=== PATIENT | male | born 1960 | race Caucasian/White ===

== ENCOUNTER 2020-04-17 10:39 | Day surgery (SDC) | payer MEDICAID ==
[2020-04-09 11:07] LABS: BASOPHILS # (AUTO) 0.1 X10'3 (0-0.2); BASOPHILS % (AUTO) 0.6 % (0-1); EOSINOPHILS # (AUTO) 0.2 X10'3 (0-0.9); EOSINOPHILS % (AUTO) 2.2 % (0-6); LYMPHOCYTES # (AUTO) 1.9 X10'3 (1.1-4.8); LYMPHOCYTES % (AUTO) 21.1 % (21-51); MEAN CORPUSCULAR HEMOGLOBIN 27.1 PG (27.0-31.0); MEAN CORPUSCULAR HGB CONC 32.7 g/dL (33.0-36.5); MEAN CORPUSCULAR VOLUME 82.9 FL (78-98); MEAN PLATELET VOLUME 7.2 FL (7.4-10.4); MONOCYTES # (AUTO) 0.6 X10'3 (0-0.9); MONOCYTES % (AUTO) 6.1 % (2-12); NEUTROPHILS # (AUTO) 6.5 X10'3 (1.8-7.7); PRE OP HEMATOCRIT 40.6 % (42.0-52.0); PRE OP HEMOGLOBIN 13.3 g/dL (14.0-17.9); PRE OP PLATELET COUNT 246 X10'3 (140-440); RED BLOOD COUNT 4.89 X10'6 (4.70-6.10); RED CELL DISTRIBUTION WIDTH 15.9 % (11.5-14.5)
[2020-04-09 11:23] LABS: ALBUMIN/GLOBULIN RATIO 1.1 (1.1-1.5); ALKALINE PHOSPHATASE 78 IU/L (46-116); BLOOD UREA NITROGEN 12 MG/DL (7-18); BUN/CREATININE RATIO 11.4 (5.4-32.0); CALCIUM 8.9 MG/DL (8.5-10.1); CHLORIDE 105 MMOL/L (99-107); CREATININE 1.05 MG/DL (0.60-1.10); PRE OP ALT 48 U/L (30-65); PRE OP ANION GAP 9 (8-16); PRE OP AST 33 U/L (10-37); PRE OP BILIRUB, TOTAL 0.4 MG/DL (0.0-1.0); PRE OP GLUCOSE 93 MG/DL (70-104); PRE OP POTASSIUM 4.2 MMOL/L (3.4-5.1); PRE OP SODIUM 142 MMOL/L (135-145); TOTAL CARBON DIOXIDE 28.4 MMOL/L (24-32); TOTAL PROTEIN 7.8 G/DL (6.4-8.2); eGFR 73 ML/MIN
[~2020-04-17] VITALS: Ht 177.8 cm; Wt 110.9 kg
[2020-04-17] VITALS (8 sets, daily range): BP systolic 111–139; BP diastolic 69–85
[~2020-04-17 10:39] MED LIST: ACET-3447 PO; ALBU2.5V10 INH; ALBU6.7H3 IH; ARIP20TA10 PO; ASPI-611 PO; ATEN100T PO; ATOR20TA66 PO; BUDE10.2 INH; CLA10T PO; CYCL-1 PO; DOCUMENT DATE & TIME OF BETA-BLOCKER PO ONE; GABA-338 PO; HCTZ25T PO; LISI-600 PO; OMEP-84 PO; VENL-191 PO; ceFAZolin 2gm in dextrose, iso 50 ML IV ONE; famotidine 20mg tablet PO ONE; ringers solution, lacted 1,000 ML IV SCH; vancomycin 1,500 MG in NS 300ml IV soln IV ONE
[2020-04-17] MEDS ORDERED: BUPIVAcaine/PF 2.5 mg/ml (0.25%) 30ml vial ONE (13:54)
[2020-04-17] MEDS ORDERED: methylPREDNISolone sod succ 125mg/2ml vial ONE (13:54)
[2020-04-17] MEDS ORDERED: ringers solution, lacted 1,000 ML IV SCH (13:57)
[2020-04-17] MEDS ORDERED: morphine 4 MG/ML inj SYRINge IV PRN (14:00)
[2020-04-17] MEDS ORDERED: ondansetron/PF 4mg/2ml inj IV PRN (14:00)
[2020-04-17] MEDS ORDERED: fentaNYL/PF 50MCG/1 ML 2ML syringe IV PRN ×2 (14:00)
[2020-04-17] MEDS ORDERED: hydrALAZINE 20mg/ml inj. IV PRN (14:00)
[2020-04-17] MEDS ORDERED: morphine 2 MG/ML inj. syringe IV PRN (14:00)
[2020-04-17] MEDS ORDERED: labetalol 20mg/4ml (5mg/ml) syringe IV PRN (14:00)
[2020-04-17] MEDS ORDERED: LIDOcaine 0.5% (5mg/ml) 50ml vial ONE (14:06)
[2020-04-17] MEDS ORDERED: MIDAZolam 1mg/ml 10ml vial ONE (14:08)
[2020-04-17] MEDS ORDERED: ketorolac trometh. 30mg/ml inj. ONE (14:08)
--- NOTE | 2020-04-17 15:00 | NUR ---
Received from OR via [facility] , accompanied by Anesthesiologist DEISY and report given by Anesthesiolgist. PATIENT WITH DRESSING TO RIGHT WRIST THAT IS CDI. VSS. DENIES PAIN. + CAP REFILL AND MOVEMENT OF RIGHT HAND AND FINGERS. Addendum: 04/17/20 at 1543 by Jeffy Borrego RN, RN Amended: Links added.
--- NOTE | 2020-04-17 16:10 | NUR ---
I HAVE REVIEWED D/C INSTRUCTIONS WITH PATIENT AND FAMILY AND THEY HAVE VERBALIZED UNDERSTANDING. PATIENT D/C HOME WITH ALL BELONGINGS AND PATIENT TOOK THE BUS HOME. VSS. DENIES PAIN. AMBULATING WITHOUT DIFFICULTY. ALL BELONGINGS WITH PATIENT. Addendum: 04/17/20 at 1625 by Jeffy Borrego RN, RN Amended: Links added.
== END 2020-04-17 16:10 | disposition home or self-care (01) ==
LOC: PAS 10:39
PROVIDERS: ATTEND Orthopaedic Surgery
DX: G56.01 Carpal tunnel syndrome, right upper limb (principal); G56.21 Lesion of ulnar nerve, right upper limb; F17.210 Nicotine dependence, cigarettes, uncomplicated; G47.33 Obstructive sleep apnea (adult) (pediatric); K21.9 Gastro-esophageal reflux disease without esophagitis; M19.90 Unspecified osteoarthritis, unspecified site; I10 Essential (primary) hypertension; F41.9 Anxiety disorder, unspecified; M48.061 Spinal stenosis, lumbar region without neurogenic claudication; J45.909 Unspecified asthma, uncomplicated; G89.4 Chronic pain syndrome; F32.9 Major depressive disorder, single episode, unspecified; E78.5 Hyperlipidemia, unspecified; E66.01 Morbid (severe) obesity due to excess calories; Z68.37 Body mass index [BMI] 37.0-37.9, adult; Z11.59 Encounter for screening for other viral diseases; Z88.5 Allergy status to narcotic agent; Z88.2 Allergy status to sulfonamides; Z98.890 Other specified postprocedural states
CPT/HCPCS: 36415; 64719; 64721; 80053; 85025; A6222; A6223; J1885; J2001; J2250; J2930; J3370; J3490; J7040; U0003; A4215; A4618; A6449; A7000; J7120

== ENCOUNTER 2020-07-17 08:41 | Day surgery (SDC) | payer MEDICAID ==
[2020-07-11 09:35] LABS: BASOPHILS # (AUTO) 0.1 X10'3 (0-0.2); BASOPHILS % (AUTO) 0.8 % (0-1); EOSINOPHILS # (AUTO) 0.2 X10'3 (0-0.9); EOSINOPHILS % (AUTO) 2.8 % (0-6); LYMPHOCYTES # (AUTO) 2.2 X10'3 (1.1-4.8); MEAN CORPUSCULAR HEMOGLOBIN 27.5 PG (27.0-31.0); MEAN CORPUSCULAR HGB CONC 33.1 g/dL (33.0-36.5); MEAN PLATELET VOLUME 7.4 FL (7.4-10.4); MONOCYTES # (AUTO) 0.7 X10'3 (0-0.9); MONOCYTES % (AUTO) 8.5 % (2-12); NEUTROPHILS # (AUTO) 5.2 X10'3 (1.8-7.7); NEUTROPHILS % (AUTO) 61.9 % (42-75); PRE OP HEMATOCRIT 39.2 % (42.0-52.0); PRE OP PLATELET COUNT 233 X10'3 (140-440); RED BLOOD COUNT 4.72 X10'6 (4.70-6.10); RED CELL DISTRIBUTION WIDTH 15.2 % (11.5-14.5)
[2020-07-11 09:47] LABS: ALBUMIN 3.9 G/DL (3.4-5.0); ALBUMIN/GLOBULIN RATIO 1.1 (1.1-1.5); ALKALINE PHOSPHATASE 75 IU/L (46-116); BLOOD UREA NITROGEN 25 MG/DL (7-18); BUN/CREATININE RATIO 23.8 (5.4-32.0); CALCIUM 9.3 MG/DL (8.5-10.1); CHLORIDE 105 MMOL/L (99-107); CREATININE 1.05 MG/DL (0.60-1.10); PRE OP ALT 44 U/L (30-65); PRE OP ANION GAP 6 (8-16); PRE OP AST 24 U/L (10-37); PRE OP BILIRUB, TOTAL 0.2 MG/DL (0.0-1.0); PRE OP GLUCOSE 116 MG/DL (70-104); PRE OP POTASSIUM 3.9 MMOL/L (3.4-5.1); PRE OP SODIUM 140 MMOL/L (135-145); TOTAL CARBON DIOXIDE 29.3 MMOL/L (24-32); TOTAL PROTEIN 7.5 G/DL (6.4-8.2); eGFR 73 ML/MIN
[~2020-07-17] VITALS: Ht 177.8 cm; Wt 105.7 kg
[2020-07-17] VITALS (10 sets, daily range): BP systolic 115–137; BP diastolic 81–90
[~2020-07-17 08:41] MED LIST changes: -ALBU6.7H3 IH; +albuterol 2.5 MG/3 ML nebule NEB ONE
[2020-07-17] MEDS ORDERED: LIDOcaine 1% (10mg/ml) 2ml vial ONE (09:01)
[2020-07-17] MEDS ORDERED: LIDOcaine 0.5% (5mg/ml) 50ml vial ONE (10:18)
[2020-07-17] MEDS ORDERED: proCHLORperazine 10 MG/2 ml inj IV PRN (10:25)
[2020-07-17] MEDS ORDERED: fentaNYL/PF 50MCG/1 ML 2ML syringe IV PRN ×2 (10:25)
[2020-07-17] MEDS ORDERED: ringers solution, lacted 1,000 ML IV SCH (10:25)
[2020-07-17] MEDS ORDERED: acetaminophen 1,000mg/100ml IV 100 ML IV PRN (10:25)
[2020-07-17] MEDS ORDERED: HYDROmorphone inj. 0.5 MG/0.5 ML DISP.SYRIN IV PRN ×2 (10:25)
[2020-07-17] MEDS ORDERED: ondansetron/PF 4mg/2ml inj IV PRN (10:25)
[2020-07-17] MEDS ORDERED: methylPREDNISolone sod succ 125mg/2ml vial ONE (10:35)
[2020-07-17] MEDS ORDERED: BUPIVAcaine/PF 2.5 mg/ml (0.25%) 30ml vial ONE (10:35)
[2020-07-17] MEDS ORDERED: MIDAZolam 5mg/5ml vial ONE (12:04)
[2020-07-17] MEDS ORDERED: fentaNYL/PF 50MCG/1 ML 2ML syringe ONE (12:05)
[2020-07-17] MEDS ORDERED: propofol inj 20 ML IV ONE ×3 (12:09)
--- NOTE | 2020-07-17 12:49 | NUR ---
RECEIVED FROM OR VIA [facility] ACCOMPANIED BY ANESTHESIOLOGIST DR SINGH, REPORT GIVEN. PT AWAKE AND ALERT AND DENIES PAIN. 20 GAUGE PIV R WRIST PATENT AND RUNNING LR AT 100 ML/HR. DRESSING L WRIST CDI. GIBSON, BRISK CAP REFILL, PPULSES PALPABLE WITH L RADIAL COVERED BY DRESSING, LUE ELEVATED. RESTING COMFORTABLY
--- NOTE | 2020-07-17 13:49 | NUR ---
PT AWAKE AND ALERT AND DENIES PAIN. TOLERATING FLUIDS, ABLE TO DRESS SELF AND AMBULATE WELL WITH NO ASSIST. 20 GAUGE PIV R WRIST DC/D CATH TIP INTACT. DRESSING L WRIST CDI. GIBSON, BRISK CAP REFILL, PPULSES PALPABLE WITH L RADIAL COVERED BY DRESSING. VSS, MEETS DC CRITERIA. DIC INSTRUCTONS GIVEN AND PT VERBALIZED UNDERSTANDING. TRANSFERRED VIA WHEELCHAIR TO [facility].
== END 2020-07-17 13:49 | disposition home or self-care (01) ==
LOC: PAS 08:41
PROVIDERS: ATTEND Orthopaedic Surgery
DX: G56.02 Carpal tunnel syndrome, left upper limb (principal); G56.22 Lesion of ulnar nerve, left upper limb; F17.210 Nicotine dependence, cigarettes, uncomplicated; J44.9 Chronic obstructive pulmonary disease, unspecified; G47.33 Obstructive sleep apnea (adult) (pediatric); I10 Essential (primary) hypertension; E11.9 Type 2 diabetes mellitus without complications; K21.9 Gastro-esophageal reflux disease without esophagitis; F32.9 Major depressive disorder, single episode, unspecified; E66.01 Morbid (severe) obesity due to excess calories; Z68.37 Body mass index [BMI] 37.0-37.9, adult; Z79.899 Other long term (current) drug therapy; Z98.890 Other specified postprocedural states; Z88.5 Allergy status to narcotic agent; Z88.2 Allergy status to sulfonamides
CPT/HCPCS: 36415; 64719; 64721; 80053; 82948; 85025; 87635; A6222; J2001; J2250; J2704; J2930; J3010; J3370; J3490; J7040; A4215; A4618; A6250; A6449; A7000; J7120

== ENCOUNTER 2021-04-23 13:29 | Emergency (ER) | payer MEDICAID ==
[~2021-04-23] VITALS: Ht 177.8 cm; Wt 110.0 kg
[~2021-04-23 13:29] MED LIST changes: -ARIP20TA10 PO; +ARIP20TA21 PO; -DOCUMENT DATE & TIME OF BETA-BLOCKER PO ONE; -LISI-600 PO; +LISI20TA28 PO; -albuterol 2.5 MG/3 ML nebule NEB ONE; -ceFAZolin 2gm in dextrose, iso 50 ML IV ONE; -famotidine 20mg tablet PO ONE; -ringers solution, lacted 1,000 ML IV SCH; -vancomycin 1,500 MG in NS 300ml IV soln IV ONE
[2021-04-23] MEDS ORDERED: normal saline 1000ML IV soln IVB ONE (14:00)
[2021-04-23] MEDS ORDERED: propofol 10mg/ml 20ml vial IV ONE ×2 (14:00→15:35)
[2021-04-23] MEDS ORDERED: propofol 1000mg/100ml bottle 100 ML IV ONE (15:00)
[2021-04-23] MEDS ORDERED: ketamine 50 mg/ml 10ml vial ONE (15:07)
[2021-04-23] MEDS ORDERED: ketamine 50 mg/ml 10ml vial IV ONE (15:35)
[2021-04-23 16:46] VITALS: BP 190/89
== END 2021-04-23 16:48 | disposition home or self-care (01) ==
LOC: ER 13:29
DX: S43.014A Anterior dislocation of right humerus, initial encounter (principal); M25.511 Pain in right shoulder; I10 Essential (primary) hypertension; J45.909 Unspecified asthma, uncomplicated; K21.9 Gastro-esophageal reflux disease without esophagitis; G89.29 Other chronic pain; F12.90 Cannabis use, unspecified, uncomplicated; Z60.2 Problems related to living alone; Z56.0 Unemployment, unspecified; Z98.890 Other specified postprocedural states; Z88.2 Allergy status to sulfonamides; Z88.8 Allergy status to other drugs, medicaments and biological substances; Z79.82 Long term (current) use of aspirin; Z79.899 Other long term (current) drug therapy; W01.0XXA Fall on same level from slipping, tripping and stumbling without subsequent striking against object, initial encounter; Y93.01 Activity, walking, marching and hiking; Y92.89 Other specified places as the place of occurrence of the external cause; Y99.8 Other external cause status
CPT/HCPCS: 23650; 73030; 94799; 99152; 99153; 99285; J2704; J7030; 94760

== ENCOUNTER 2024-12-03 09:37 | Emergency (ER) | payer MEDICAID ==
[~2024-12-03] VITALS: Ht 177.8 cm; Wt 93.8 kg
[~2024-12-03 09:37] MED LIST changes: -ARIP20TA21 PO; +ARIP20TA63 PO
[2024-12-03 10:07] VITALS: BP 189/120; PULSE 80; RESP 18; TEMP 97.8; O2SAT 98
[2024-12-03] MEDS ORDERED: CARB15DR91 RIGHT EAR (12:31)
== END 2024-12-03 13:02 | disposition home or self-care (01) ==
LOC: ER 09:38
DX: H61.23 Impacted cerumen, bilateral (principal); I10 Essential (primary) hypertension; J45.909 Unspecified asthma, uncomplicated; K21.9 Gastro-esophageal reflux disease without esophagitis; F12.90 Cannabis use, unspecified, uncomplicated; Z88.2 Allergy status to sulfonamides; Z88.5 Allergy status to narcotic agent; Z88.8 Allergy status to other drugs, medicaments and biological substances; Z98.890 Other specified postprocedural states
CPT/HCPCS: 99282